=== PATIENT | female | born 1990 | race Caucasian/White ===

== ENCOUNTER 2016-09-19 09:45 | Emergency (ER) | payer OTHER ==
[~2016-09-19] VITALS: Ht 167.6 cm; Wt 65.9 kg
[2016-09-19] MEDS ORDERED: TRINTAB3 PO (09:54)
[2016-09-19] MEDS ORDERED: ACETAMINOPHEN 325 MG TAB PO ONE (12:00)
[2016-09-19] MEDS ORDERED: KETOROLAC 60 MG/2 ML VIAL (J1885) IM ONE (12:00)
[2016-09-19] MEDS ORDERED: ONDANSETRON 4 MG ORAL DISINTEGRATING TAB (S0181) PO ONE (12:00)
[2016-09-19] MEDS ORDERED: ZOFR4TAB3 PO (12:45)
[2016-09-19 12:58] VITALS: BP 134/71
== END 2016-09-19 12:59 | disposition home or self-care (01) ==
LOC: M ED 11:55
DX: S09.90XA Unspecified injury of head, initial encounter (principal); W21.07XA Struck by softball, initial encounter; Y92.830 Public park as the place of occurrence of the external cause; Y93.64 Activity, baseball; Y99.8 Other external cause status; Z79.899 Other long term (current) drug therapy; Z88.1 Allergy status to other antibiotic agents; Z88.5 Allergy status to narcotic agent
CPT/HCPCS: 96372; 99282; J1885

== ENCOUNTER → 2021-03-20 | Outpatient (CLI) | payer OTHER ==
[~2021-03-20] MED LIST: TRINTAB PO; ZOFR4TAB14 PO
[2021-03-20 14:03] LABS: HEMATOCRIT 42.2 % (36.0-47.0); HEMOGLOBIN 13.9 g/dl (12.0-15.5); MEAN CORPUSCULAR HGB CONC 32.9 g/dl (32.0-36.5); PLATELET COUNT, AUTOMATED 261 10^3/uL (150-450); RED BLOOD COUNT 4.49 10^6/uL (4.00-5.40); WHITE BLOOD COUNT 7.2 10^3/uL (4.0-10.0)
[2021-03-20 15:17] LABS: HEPATITIS C VIRUS ABY INDEX 0.1 INDEX (<0.8); HIV 1&2 SCREEN CENTAUR NEGATIVE (NEGATIVE)
[2021-03-20 15:22] LABS: GC DNA AMPLIFICATION NEGATIVE (NEGATIVE)
== END ==
LOC: M PLALAB 11:19
PROVIDERS: ATTEND Specialist
DX: Z34.01 Encounter for supervision of normal first pregnancy, first trimester (principal)

== ENCOUNTER → 2021-06-08 | Outpatient (CLI) | payer OTHER | LOC: M WHC 14:31 | PROVIDERS: ATTEND Obstetrics & Gynecology | DX: Z34.01 Encounter for supervision of normal first pregnancy, first trimester (principal) ==

== ENCOUNTER → 2021-07-20 | Outpatient (CLI) | payer OTHER ==
[2021-07-20 17:20] LABS: HEMATOCRIT 35.4 % (36.0-47.0); HEMOGLOBIN 11.9 g/dl (12.0-15.5); MEAN CORPUSCULAR HEMOGLOBIN 32.9 pg (27.0-33.0); MEAN CORPUSCULAR HGB CONC 33.6 g/dl (32.0-36.5); MEAN CORPUSCULAR VOLUME 97.8 fl (80.0-96.0); PLATELET COUNT, AUTOMATED 270 10^3/uL (150-450); RED BLOOD COUNT 3.62 10^6/uL (4.00-5.40); WHITE BLOOD COUNT 11.4 10^3/uL (4.0-10.0)
[2021-07-20 19:02] LABS: GC DNA AMPLIFICATION NEGATIVE (NEGATIVE)
== END ==
LOC: M PLALAB 13:58
PROVIDERS: ATTEND Specialist
DX: Z36.89 Encounter for other specified antenatal screening (principal); Z3A.21 21 weeks gestation of pregnancy

== ENCOUNTER → 2021-09-24 | Outpatient (REF) | payer OTHER | LOC: M SFHCWAGY 12:52 | PROVIDERS: ATTEND Advanced Practice Midwife | DX: Z34.03 Encounter for supervision of normal first pregnancy, third trimester (principal) ==

== ENCOUNTER 2021-10-19 21:15 | Inpatient (IN) | payer OTHER ==
[2021-10-19] VITALS (8 sets, daily range): BP systolic 129–150; BP diastolic 84–96
[~2021-10-19] VITALS: Ht 167.6 cm; Wt 79.5 kg
[2021-10-19] MEDS ORDERED: PRENTAB9 PO (21:41)
[2021-10-19] MEDS ORDERED: ACET325C5 PO (21:41)
[2021-10-19] MEDS ORDERED: HOME MED LIST COMPLETE! XX SCH (21:45)
[2021-10-19] MEDS ORDERED: METHYLERGONOVINE MALEATE 0.2 MG/ML VIAL (J2210) IM PRN (22:25)
[2021-10-19] MEDS ORDERED: CARBOPROST TROMETHAMINE 250 MCG/ML AMP IM PRN (22:25)
[2021-10-19] MEDS ORDERED: LR 1,000 ML IV SCH (22:25)
[2021-10-19] MEDS ORDERED: LACTATED RINGER'S 1000 ML IV STA (22:25)
[2021-10-19] MEDS ORDERED: OXYTOCIN DRIP 30 UNITS in IV 1 EA IV PRN (22:25)
[2021-10-19] MEDS ORDERED: LIDOCAINE 1% MDV 20ML VIAL INFIL PRN (22:25)
[2021-10-19] MEDS ORDERED: TRANEXAMIC ACID INJection 1,000 MG in NS 100 ML IV PRN (22:25)
[2021-10-19] MEDS ORDERED: OXYTOCIN INJ 10 UNITS/ML VIAL (J2590) IM PRN (22:25)
[2021-10-19 22:50] LABS: HEMATOCRIT 35.1 % (36.0-47.0); MEAN CORPUSCULAR HEMOGLOBIN 32.5 pg (27.0-33.0); MEAN CORPUSCULAR HGB CONC 34.2 g/dl (32.0-36.5); MEAN CORPUSCULAR VOLUME 95.1 fl (80.0-96.0); PLATELET COUNT, AUTOMATED 189 10^3/uL (150-450); RED BLOOD COUNT 3.69 10^6/uL (4.00-5.40); WHITE BLOOD COUNT 10.8 10^3/uL (4.0-10.0)
[2021-10-19 23:13] LABS: TOTAL PROTEIN,RANDOM URINE 20.2 MG/DL (0.0-12.0)
[2021-10-19 23:16] LABS: ALT/SGPT 12 U/L (12-78); BILIRUBIN,TOTAL 0.3 MG/DL (0.2-1.0); GLOMERULAR FILTRATION RATE > 60.0 (>60); LDH LACTATE DEHYDROGENASE 158 U/L (84-246); URIC ACID 5.1 MG/DL (2.6-6.0)
[2021-10-20] VITALS (29 sets, daily range): BP systolic 100–150; BP diastolic 58–95
[2021-10-20] MEDS ORDERED: OXYTOCIN DRIP 30 UNITS in IV 1 EA IV SCH ×2 (00:20→11:05)
[2021-10-20] MEDS ORDERED: FENTANYL 2MCG/ML ROPIVACAINE 0.2% IN 0.9% NACL 100ML IVBAG As Ordered ONE (02:24)
[2021-10-20] MEDS ORDERED: EPIDURAL/PCA KEYS XX PRN (07:00)
[2021-10-20] MEDS ORDERED: EPIDURAL COMMENT XX SCH (07:00)
[2021-10-20] MEDS ORDERED: FENTANYL/ROPIVACAINE/NACL BAG 100 ML EPIDURAL SCH (07:00)
[2021-10-20] MEDS ORDERED: REFRIGERATOR IV KEYS XX PRN (07:00)
[2021-10-20] MEDS ORDERED: ONDANSETRON 4MG 2ML VIAL IV PRN ×2 (07:00→11:05)
[2021-10-20] MEDS ORDERED: ePHEDrine SULFATE 25 MG/5 ML(5MG/ML) SYRINGE IV PRN (07:00)
[2021-10-20] MEDS ORDERED: diphenhydrAMINE 50MG/ML VIAL (J1200) IV PRN (07:00)
[2021-10-20] MEDS ORDERED: NALOXONE INJ 0.4MG/1ML VIAL (J2310 PER 1MG) IV PRN (07:00)
[2021-10-20] MEDS ORDERED: LACTATED RINGER'S 1000 ML IV PRN (07:00)
[2021-10-20 10:47] LABS: CORD GAS ABE A -9.7; CORD GAS PCO2 A 74.5 mmHg; CORD GAS PH A 7.089 UNITS; CORD GAS TCO2 A 24.3 MEQ/L
[2021-10-20 10:48] LABS: CORD GAS PO2 A < 10.0 mmHg
[2021-10-20 10:49] LABS: CORD GAS O2 SAT A < 15.0 %
[2021-10-20 10:51] LABS: CORD GAS ABE V -9.6; CORD GAS HCO3 V 18.9 MEQ/L; CORD GAS O2 SAT V 45.3 %; CORD GAS PCO2 V 50.4 mmHg; CORD GAS PH V 7.192 UNITS; CORD GAS PO2 V 21.9 mmHg; CORD GAS SBC V 15.8 MEQ/L; CORD GAS TCO2 V 20.5 MEQ/L
[2021-10-20] MEDS ORDERED: METHYLERGONOVINE MALEATE 0.2 MG TAB PO PRN (11:05)
[2021-10-20] MEDS ORDERED: RHOGAM 300 MCG (1500 IU) INJ (J2790) IM SCH (11:05)
[2021-10-20] MEDS ORDERED: LIDOCAINE 1% MDV 20ML VIAL INFIL ONE (11:05)
[2021-10-20] MEDS ORDERED: DOCUSATE SODIUM 100MG CAPSULE PO PRN (11:05)
[2021-10-20] MEDS ORDERED: IBUPROFEN 600MG TAB PO PRN (11:05)
[2021-10-20] MEDS ORDERED: ACETAMINOPHEN TAB 650MG DOSE (2X325MG) PO PRN (11:05)
[2021-10-20] MEDS ORDERED: IBUPROFEN 800 MG TAB PO PRN (11:05)
[2021-10-20] MEDS ORDERED: DIBUCAINE 1% OINTMENT 30GM TOP PRN (11:05)
[2021-10-20] MEDS: ACETAMINOPHEN 500 MG TAB PO PRN (11:37)
[2021-10-20] MEDS ORDERED: PERCOCET 5MG/325MG TAB PO PRN (15:40)
[2021-10-20] MEDS: KETOROLAC 30 MG/ML 1ML VIAL IV SCH ×2 (16:16→21:37)
[2021-10-20] MEDS: ANUSOL HC CREAM 30GM TOP SCH (21:38)
[2021-10-20] MEDS: DOCUSATE SODIUM 100MG CAPSULE PO SCH (21:38)
[2021-10-21] MEDS: KETOROLAC 30 MG/ML 1ML VIAL IV SCH ×4 (04:05→22:00)
[2021-10-21 06:04] VITALS: BP 130/83
[2021-10-21] MEDS: PRENATAL VITAMINS CHEWABLE TABLET PO SCH (09:19)
[2021-10-21] MEDS: DOCUSATE SODIUM 100MG CAPSULE PO SCH ×2 (09:19→20:27)
[2021-10-21] MEDS: ANUSOL HC CREAM 30GM TOP SCH ×2 (09:20→20:28)
[2021-10-21 18:00] VITALS: BP 124/82
[2021-10-22] MEDS: KETOROLAC 30 MG/ML 1ML VIAL IV SCH ×2 (03:40→10:00)
[2021-10-22 06:00] VITALS: BP 115/74
[2021-10-22] MEDS: ACETAMINOPHEN 500 MG TAB PO PRN (06:45)
[2021-10-22] MEDS ORDERED: MEASLES,MUMPS,RUBELLA VACCINE INJ (MMR-II) (90707) SC.IMMUN ONE (09:00)
[2021-10-22] MEDS: PRENATAL VITAMINS CHEWABLE TABLET PO SCH (09:39)
[2021-10-22] MEDS: DOCUSATE SODIUM 100MG CAPSULE PO SCH (09:39)
[2021-10-22] MEDS: ANUSOL HC CREAM 30GM TOP SCH (10:53)
[2021-10-22] MEDS ORDERED: ACET-683 PO (11:00)
[2021-10-22] MEDS ORDERED: COLA100C5 PO (11:00)
[2021-10-22] MEDS ORDERED: IBUP-1022 PO (11:00)
== END 2021-10-22 12:45 | disposition home or self-care (01) | DRG 768 ==
LOC: M LDO 21:15 → M LDI 22:33 → M OBS 10-20 12:37
PROVIDERS: ADMIT Advanced Practice Midwife; ATTEND Specialist
PROC: 10E0XZZ Delivery of Products of Conception, External Approach (ICD-10-PCS; principal; 2021-10-20)
PROC: 0DQR0ZZ Repair Anal Sphincter, Open Approach (ICD-10-PCS; 2021-10-20)
PROC: 10907ZC Drainage of Amniotic Fluid, Therapeutic from Products of Conception, Via Natural or Artificial Opening (ICD-10-PCS; 2021-10-20)
DX: O13.4 Gestational [pregnancy-induced] hypertension without significant proteinuria, complicating childbirth (principal); Z37.0 Single live birth; Z3A.39 39 weeks gestation of pregnancy; O69.81X0 Labor and delivery complicated by cord around neck, without compression, not applicable or unspecified; O70.20 Third degree perineal laceration during delivery, unspecified

== ENCOUNTER 2021-11-23 10:49 | Emergency (ER) | payer OTHER ==
[~2021-11-23] VITALS: Ht 165.1 cm; Wt 67.9 kg
[~2021-11-23 10:49] MED LIST changes: +ACET-683 PO; +ACET325C5 PO; +COLA100C5 PO; +IBUP-1022 PO; +PRENTAB9 PO
[2021-11-23] MEDS ORDERED: SUNFLOWER LECITHIN PO (11:16)
[2021-11-23] MEDS ORDERED: CEPH500C (11:16)
[2021-11-23] MEDS ORDERED: LIDOCAINE W/EPINEPHRINE 1% 20ML VIAL SC ONE (13:25)
[2021-11-23] MEDS ORDERED: CLINDAMYCIN 900 MG in IV 1 EA IV ONE (14:00)
[2021-11-23] MEDS ORDERED: ACETAMINOPHEN 500 MG TAB PO ONE (14:00)
[2021-11-23] MEDS ORDERED: CLINDAMYCIN 150MG CAPSULE PO ONE (14:30)
[2021-11-23 14:34] LABS: BASO # 0.1 10^3/uL (0.0-0.2); BASO % 0.3 % (0.0-1.0); EOS # 0.5 10^3/uL (0.0-0.5); EOS % 3.3 % (0.0-3.0); HEMATOCRIT 39.1 % (36.0-47.0); HEMOGLOBIN 12.8 g/dl (12.0-15.5); LYMPH # 1.7 10^3/uL (1.5-5.0); LYMPH % 11.1 % (24.0-44.0); MEAN CORPUSCULAR HEMOGLOBIN 31.4 pg (27.0-33.0); MEAN CORPUSCULAR HGB CONC 32.7 g/dl (32.0-36.5); MEAN CORPUSCULAR VOLUME 95.8 fl (80.0-96.0); MONO # 0.8 10^3/uL (0.0-0.8); MONO % 5.1 % (2.0-8.0); NEUTROPHILS # 12.3 10^3/uL (1.5-8.5); NEUTROPHILS % 79.4 % (36.0-66.0); PLATELET COUNT, AUTOMATED 347 10^3/uL (150-450); RED BLOOD COUNT 4.08 10^6/uL (4.00-5.40); WHITE BLOOD COUNT 15.6 10^3/uL (4.0-10.0)
[2021-11-23] MEDS ORDERED: NEOSPORIN TOP OINT 15GM TOP ONE (14:35)
[2021-11-23 15:02] LABS: RSV AMPLIFICATION NEGATIVE (NEGATIVE)
[2021-11-23] MEDS ORDERED: LIDOCAINE 2% MDV 20ML VIAL SC ONE (17:25)
[2021-11-23] MEDS ORDERED: CLEO300C2 PO (18:09)
[2021-11-23 18:24] VITALS: BP 125/89
== END 2021-11-23 18:36 | disposition home or self-care (01) ==
LOC: M ED 10:49
DX: N61.1 Abscess of the breast and nipple (principal); L03.313 Cellulitis of chest wall; Z88.0 Allergy status to penicillin; Z88.5 Allergy status to narcotic agent

== ENCOUNTER → 2022-03-31 | Outpatient (REF) | payer OTHER ==
[~2022-03-31] MED LIST changes: +CEPH500C; +CLEO300C2 PO; +SUNFLOWER LECITHIN PO
== END ==
LOC: M SFHCWAGY 13:12
PROVIDERS: ATTEND Nurse Practitioner Family
DX: Z12.4 Encounter for screening for malignant neoplasm of cervix (principal); Z01.419 Encounter for gynecological examination (general) (routine) without abnormal findings; Z77.9 Other contact with and (suspected) exposures hazardous to health
CPT/HCPCS: 87624; G0123

== ENCOUNTER → 2022-08-07 | Outpatient (CLI) | payer OTHER ==
[2022-08-07 10:51] LABS: BASO % 0.4 % (0.0-1.0); EOS # 0.2 10^3/uL (0.0-0.5); EOS % 2.8 % (0.0-3.0); HEMATOCRIT 42.5 % (36.0-47.0); HEMOGLOBIN 13.7 g/dl (12.0-15.5); LYMPH # 1.8 10^3/uL (1.5-5.0); LYMPH % 31.9 % (24.0-44.0); MEAN CORPUSCULAR HEMOGLOBIN 30.6 pg (27.0-33.0); MEAN CORPUSCULAR HGB CONC 32.2 g/dl (32.0-36.5); MEAN CORPUSCULAR VOLUME 95.1 fl (80.0-96.0); MONO # 0.3 10^3/uL (0.0-0.8); MONO % 5.8 % (2.0-8.0); NEUTROPHILS # 3.4 10^3/uL (1.5-8.5); NEUTROPHILS % 58.9 % (36.0-66.0); PLATELET COUNT, AUTOMATED 268 10^3/uL (150-450); RED BLOOD COUNT 4.47 10^6/uL (4.00-5.40); WHITE BLOOD COUNT 5.7 10^3/uL (4.0-10.0)
[2022-08-07 11:26] LABS: ALBUMIN 3.9 G/DL (3.2-5.2); ALKALINE PHOSPHATASE 48 U/L (46-116); ALT/SGPT 12 U/L (7.0-40); AST/SGOT 12 U/L (<34); BILIRUBIN,TOTAL 0.6 MG/DL (0.3-1.2); BLOOD UREA NITROGEN 10 MG/DL (9-23); CALCIUM LEVEL 8.7 MG/DL (8.5-10.1); CARBON DIOXIDE LEVEL 29 MMOL/L (20-31); CHLORIDE LEVEL 107 MMOL/L (98-107); CREATININE FOR GFR 0.59 MG/DL (0.55-1.30); GLOMERULAR FILTRATION RATE > 60.0 (>60); GLUCOSE, FASTING 75 MG/DL (60-100); IRON (FE) 72 UG/DL (50-170); POTASSIUM SERUM 4.2 MMOL/L (3.5-5.1); SODIUM LEVEL 141 MMOL/L (136-145); TOTAL IRON BINDING CAPACITY 288 UG/DL (250-425); TOTAL PROTEIN 6.9 G/DL (5.7-8.2)
[2022-08-07 11:28] LABS: THYROID STIMULATING HORMONE 3.372 uIU/ML (0.55-4.78); TOTAL 25(OH) VITAMIN D 29.8 NG/ML (20.0-100.0)
[2022-08-07 11:29] LABS: FREE T4 0.78 NG/DL (0.89-1.76)
[2022-08-07 11:46] LABS: HEMOGLOBIN A1c 4.9 % (4.0-6.0)
== END ==
LOC: M LAB 10:10
PROVIDERS: ATTEND Nurse Practitioner Family
DX: R53.82 Chronic fatigue, unspecified (principal)

== ENCOUNTER → 2024-10-29 | Outpatient (CLI) | payer OTHER | LOC: M PLALAB 15:42 | PROVIDERS: ATTEND Advanced Practice Midwife | DX: O20.9 Hemorrhage in early pregnancy, unspecified (principal) ==

== ENCOUNTER → 2024-10-31 | Outpatient (REF) | payer OTHER | LOC: M PLALAB 16:54 | PROVIDERS: ATTEND Advanced Practice Midwife | DX: O20.9 Hemorrhage in early pregnancy, unspecified (principal) ==

== ENCOUNTER → 2025-01-25 | Outpatient (CLI) | payer OTHER ==
[~2025-01-25] MED LIST changes: -IBUP-1022 PO; +IBUP600T42 PO
[2025-01-25 13:42] LABS: PLATELET COUNT, AUTOMATED 287 10^3/uL (150-450)
[2025-01-25 14:27] LABS: HIV 1&2 SCREEN NEGATIVE (NEGATIVE)
[2025-01-25 14:35] LABS: HEPATITIS C VIRUS ABY INDEX < 0.02 INDEX (<0.8)
[2025-01-25 14:39] LABS: Trichomonas vaginalis (AMP) NOT DETECTED (NEGATIVE)
[2025-01-25 15:01] LABS: GC DNA AMPLIFICATION NEGATIVE (NEGATIVE)
== END ==
LOC: M PLALAB 10:37
PROVIDERS: ATTEND Advanced Practice Midwife
DX: Z34.80 Encounter for supervision of other normal pregnancy, unspecified trimester (principal)

== ENCOUNTER → 2025-04-01 | Outpatient (CLI) | payer OTHER | LOC: M WHC 09:30 | PROVIDERS: ATTEND Student in an Organized Health Care Education/Training Program | DX: Z34.82 Encounter for supervision of other normal pregnancy, second trimester (principal); Z3A.19 19 weeks gestation of pregnancy ==